=== PATIENT | female | born 1970 | race African-American/Black ===

== ENCOUNTER → 2017-12-10 | Outpatient (CLI) | payer OTHER ==
--- NOTE | 2017-12-10 10:17 | RAD ---
Exam: Chest two views History: 47-year-old female. Evaluate for anesthesia risks. Hypertension. Comparison: None Findings: Heart size and pulmonary vasculature are normal. Lungs are clear with no infiltrate or sign ificant effusion on either side. Bony thorax is unremarkable as well. Impression: No acute cardiopulmonary abnormality is seen on this exam. Reported By:
[2017-12-10 10:55] LABS: BASOPHILS # (AUTO) 0.1 X10^3/uL (0.0-0.1); BASOPHILS % (AUTO) 1.1 % (0.2-1.0); EOSINOPHILS # (AUTO) 0.3 x10^3/uL (0.0-0.2); EOSINOPHILS % (AUTO) 2.5 % (0.9-2.9); HEMATOCRIT 27.7 % (36.0-47.0); HEMOGLOBIN 8.8 g/dL (12.0-16.0); LYMPHOCYTES # (AUTO) 2.5 X10^3/uL (1.3-2.9); LYMPHOCYTES % (AUTO) 24.8 % (21.0-51.0); MEAN CORPUSCULAR HEMOGLOBIN 24.9 pg (27.0-34.0); MEAN CORPUSCULAR HGB CONC 31.7 g/dL (33.0-35.0); MEAN CORPUSCULAR VOLUME 78.6 fL (80.0-100.0); MEAN PLATELET VOLUME 7.6 fL (7.4-11.0); MONOCYTES # (AUTO) 0.5 x10^3/uL (0.3-0.8); MONOCYTES % (AUTO) 4.9 % (0.0-13.0); NEUTROPHILS # (AUTO) 6.6 x10^3/uL (2.2-4.8); NEUTROPHILS % (AUTO) 66.7 % (42.0-75.0); PLATELET COUNT 334 X10^3/uL (150.0-450.0); RED BLOOD COUNT 3.53 X10^6/uL (3.5-5.4); RED CELL DISTRIBUTION WIDTH 17.9 % (11.6-16.5); WHITE BLOOD COUNT 9.9 X10^3/uL (3.6-10.0)
[2017-12-10 10:59] LABS: BLOOD UREA NITROGEN 12 mg/dL (7-18); CALCIUM 8.3 mg/dL (8.5-10.1); CARBON DIOXIDE 25.8 mmol/L (21-32); CHLORIDE 106 mmol/L (98-107); CREATININE 0.99 mg/dL (0.55-1.02); SODIUM 141 mmol/L (136-145); eGFR BLACK RACES > 60 (>60); eGFR NON BLACK RACES > 60 (>60)
[2017-12-10 11:09] LABS: BILIRUBIN,URINE NEGATIVE (NEGATIVE); BLOOD/HEMOGLOBIN,URINE 2+ (NEGATIVE); GLUCOSE, URINE NEGATIVE (NEGATIVE); KETONES,URINE NEGATIVE (NEGATIVE); LEUKOCYTE ESTERASE ,URINE 3+ (NEGATIVE); NITRITES,URINE NEGATIVE (NEGATIVE); PROTEIN,URINE 1+ (NEGATIVE); UROBILINOGEN,URINE NORMAL (NORMAL)
[2017-12-10 11:17] LABS: APPEARANCE,URINE HAZY (CLEAR); COLOR,URINE YELLOW (YELLOW)
[2017-12-10 11:18] LABS: BACTERIA,URINE NEGATIVE /HPF (NEGATIVE); SQUAMOUS EPITHELIAL CELL,UR FEW /HPF (NEGATIVE); TRICHOMONAS,URINE FEW /HPF (NEGATIVE)
[2017-12-10 11:19] LABS: SERUM PREGNANCY TEST, QUAL NEGATIVE <10 mIU/mL
[2017-12-10 11:56] LABS: PLATELET MORPHOLOGY COMMENT NORMAL (NORMAL)
== END ==
LOC: LAB 09:49
PROVIDERS: ATTEND Specialist
DX: Z01.818 Encounter for other preprocedural examination (principal); Z01.810 Encounter for preprocedural cardiovascular examination; Z01.811 Encounter for preprocedural respiratory examination; N92.5 Other specified irregular menstruation; N94.6 Dysmenorrhea, unspecified; R10.2 Pelvic and perineal pain; D50.8 Other iron deficiency anemias
CPT/HCPCS: 36415; 71046; 80048; 81001; 84703; 85025; 85610; 85730; 86850; 86900; 86901; 87086; 93005; 93010

== ENCOUNTER 2017-12-12 06:27 | Inpatient (IN) | payer OTHER ==
[2017-12-12] MEDS ORDERED: ANCEF 1 GM IV PREMIX* 1 GM/50 ML BAG IV ONE (06:33)
[2017-12-12] MEDS ORDERED: D5 1/2 NS 1000 ML 1,000 ML IV SCH ×2 (06:33→14:33)
[2017-12-12] MEDS ORDERED: ANCEF VIAL 1 GM 1 GM in NS 50 ML IV + SPIKE MINIBAG* 50 ML IV PRN (06:33)
[2017-12-12] MEDS ORDERED: D5 1/2 NS 1000 ML 1,000 ML IV ONE (06:34)
[2017-12-12 06:58] VITALS: BMI 31.6
[2017-12-12] MEDS ORDERED: FENTANYL INJ 250 mcg ONE (07:07)
[2017-12-12] MEDS ORDERED: DECADRON INJ ONE (07:47)
[2017-12-12] MEDS ORDERED: LR 1000 ML IV 1,000 ML IV ONE (07:47)
[2017-12-12] MEDS ORDERED: NS IRRIGATION 1000 ML 1,000 ML IR ONE (08:02)
[2017-12-12] MEDS ORDERED: FENTANYL INJ 100 mcg ONE (08:08)
[2017-12-12 08:10] LABS: BILIRUBIN,URINE NEGATIVE (NEGATIVE); BLOOD/HEMOGLOBIN,URINE 2+ (NEGATIVE); GLUCOSE, URINE NEGATIVE (NEGATIVE); KETONES,URINE NEGATIVE (NEGATIVE); LEUKOCYTE ESTERASE ,URINE 1+ (NEGATIVE); NITRITES,URINE NEGATIVE (NEGATIVE); PROTEIN,URINE 1+ (NEGATIVE); UROBILINOGEN,URINE NORMAL (NORMAL)
[2017-12-12 08:15] LABS: APPEARANCE,URINE CLEAR (CLEAR); COLOR,URINE YELLOW (YELLOW)
[2017-12-12 08:24] LABS: BACTERIA,URINE NEGATIVE /HPF (NEGATIVE); SQUAMOUS EPITHELIAL CELL,UR RARE /HPF (NEGATIVE)
[2017-12-12 08:25] LABS: AMORPHOUS SEDIMENT,UR 1+ /HPF (NEGATIVE); MUCUS,URINE FEW /HPF (NEGATIVE)
[2017-12-12] MEDS ORDERED: DILAUDID INJ IVP PRN (09:32)
[2017-12-12] MEDS ORDERED: REGLAN INJ 10 MG VIAL IVP PRN (09:32)
[2017-12-12] MEDS ORDERED: PHENERGAN INJ 25 MG IVP PRN (09:32)
[2017-12-12] MEDS ORDERED: ZOFRAN INJ 4 MG VIAL IVP PRN ×2 (09:32→10:03)
[2017-12-12] MEDS ORDERED: BENADRYL INJ 50 MG VIAL IVP PRN ×2 (09:32→10:03)
[2017-12-12] MEDS: DILAUDID INJ ONE ×2 (09:35→09:40)
[2017-12-12] MEDS ORDERED: TORADOL 30 MG VIAL IVP PRN (10:03)
[2017-12-12] MEDS ORDERED: FLUVIRIN IM ONE (11:00)
[2017-12-12] MEDS: MORPHINE SULFATE PCA 30 MG IVP PRN (11:32)
[2017-12-12] MEDS: D5 1/2 NS 1000 ML 1,000 ML IV SCH ×2 (11:32→20:10)
[2017-12-12] MEDS ORDERED: XYLOCAINE 1 % (PLAIN) ONE (12:52)
[2017-12-12] MEDS ORDERED: LTA KIT LIDOCAINE 4% ONE (12:52)
[2017-12-12] MEDS ORDERED: SUPRANE IN ONE (12:52)
[2017-12-12] MEDS ORDERED: VERSED ONE (12:52)
[2017-12-12] MEDS ORDERED: DIPRIVAN VIAL ONE (12:52)
[2017-12-12] MEDS ORDERED: ROBINUL ONE (12:52)
[2017-12-12] MEDS ORDERED: ZOFRAN INJ 4 MG VIAL ONE (12:52)
[2017-12-12] MEDS ORDERED: QUELICIN (OR ANECTINE) ONE (12:52)
[2017-12-12] MEDS ORDERED: NORCURON INJ 10 MG VIAL ONE (12:52)
[2017-12-13] MEDS: MORPHINE SULFATE PCA 30 MG IVP PRN (00:13)
[2017-12-13] MEDS: D5 1/2 NS 1000 ML 1,000 ML IV SCH ×3 (04:04→18:09)
[2017-12-13 06:14] LABS: BASOPHILS # (AUTO) 0.1 X10^3/uL (0.0-0.1); BASOPHILS % (AUTO) 0.3 % (0.2-1.0); HEMATOCRIT 23.9 % (36.0-47.0); HEMOGLOBIN 7.7 g/dL (12.0-16.0); LYMPHOCYTES # (AUTO) 1.5 X10^3/uL (1.3-2.9); LYMPHOCYTES % (AUTO) 7.2 % (21.0-51.0); MEAN CORPUSCULAR HEMOGLOBIN 24.9 pg (27.0-34.0); MEAN CORPUSCULAR HGB CONC 32.1 g/dL (33.0-35.0); MEAN CORPUSCULAR VOLUME 77.7 fL (80.0-100.0); MEAN PLATELET VOLUME 7.9 fL (7.4-11.0); MONOCYTES % (AUTO) 4.7 % (0.0-13.0); NEUTROPHILS % (AUTO) 87.8 % (42.0-75.0); PLATELET COUNT 312 X10^3/uL (150.0-450.0); RED BLOOD COUNT 3.08 X10^6/uL (3.5-5.4); RED CELL DISTRIBUTION WIDTH 17.7 % (11.6-16.5); WHITE BLOOD COUNT 20.5 X10^3/uL (3.6-10.0)
[2017-12-13 06:19] LABS: BLOOD UREA NITROGEN 9 mg/dL (7-18); CALCIUM 7.6 mg/dL (8.5-10.1); CARBON DIOXIDE 23.6 mmol/L (21-32); CHLORIDE 104 mmol/L (98-107); COR NA(FOR HYPERGLY) 138 mmol/L (136-145); CREATININE 0.98 mg/dL (0.55-1.02); SODIUM 138 mmol/L (136-145); eGFR BLACK RACES > 60 (>60); eGFR NON BLACK RACES > 60 (>60)
[2017-12-13 07:03] LABS: HYPOCHROMASIA SLIGHT; PLATELET MORPHOLOGY COMMENT NORMAL (NORMAL)
[2017-12-13] MEDS ORDERED: MOTRIN TAB 800 MG PO PRN (07:41)
[2017-12-13] MEDS: ZESTORETIC 20/25 MG PO SCH (09:08)
[2017-12-13] MEDS: COLACE CAP 100 MG PO SCH ×2 (09:08→20:51)
[2017-12-13] MEDS: FERROUS GLUCONATE PO SCH ×2 (09:09→16:34)
[2017-12-13] MEDS: PERCOCET TAB 5/325 MG PO PRN ×3 (09:09→19:30)
[2017-12-13] MEDS: BACTROBAN OINT TOP SCH ×2 (14:12→22:44)
[2017-12-14] MEDS: PERCOCET TAB 5/325 MG PO PRN ×2 (00:01→05:03)
[2017-12-14] MEDS: BACTROBAN OINT TOP SCH (05:03)
[2017-12-14] MEDS: D5 1/2 NS 1000 ML 1,000 ML IV SCH (05:03)
[2017-12-14] MEDS: ZESTORETIC 20/25 MG PO SCH (08:22)
[2017-12-14] MEDS: FERROUS GLUCONATE PO SCH (08:22)
[2017-12-14] MEDS: COLACE CAP 100 MG PO SCH (08:22)
[2017-12-14 08:25] VITALS: BP 131/66
== END 2017-12-14 11:05 | disposition home or self-care (01) | DRG 743 ==
LOC: MED/SURG 06:27
PROVIDERS: ADMIT Specialist; ATTEND Specialist
PROC: 0UT20ZZ Resection of Bilateral Ovaries, Open Approach (ICD-10-PCS; 2017-12-12)
PROC: 0UB70ZZ Excision of Bilateral Fallopian Tubes, Open Approach (ICD-10-PCS; 2017-12-12)
PROC: 0UT90ZZ Resection of Uterus, Open Approach (ICD-10-PCS; principal; 2017-12-12 07:30)
DX: N92.0 Excessive and frequent menstruation with regular cycle (principal); N94.6 Dysmenorrhea, unspecified; R10.2 Pelvic and perineal pain; D50.8 Other iron deficiency anemias; D25.9 Leiomyoma of uterus, unspecified; I10 Essential (primary) hypertension
CPT/HCPCS: 36415; 71046; 80048; 81001; 84703; 85025; 85610; 85730; 86850; 86900; 86901; 87086; 93005; 93010; 94760; A4216; A4222; J0330; J0690; J1100; J1170; J1885; J2001; J2250; J2271; J2405; J3010; J3490; J7042; J7120